=== PATIENT | female | born 1980 | race American Indian/Alaskan Native ===

== ENCOUNTER 2021-09-16 16:01 | Emergency (ER) | payer MEDICAID, OTHER ==
[2021-09-16] MEDS ORDERED: KETOROLAC 30 MG/1 ML INJ IM ONE (23:01)
[2021-09-16] MEDS ORDERED: ONDANSETRON 4 MG ODT TAB PO ONE (23:01)
[2021-09-16] MEDS ORDERED: CLINDAMYCIN 300 MG CAP PO ONE (23:01)
[2021-09-16] MEDS ORDERED: oxyCODONE /ACETAMINOPHEN 5-325MG TAB PO ONE (23:01)
--- NOTE | 2021-09-17 00:19 | Emergency Department Report ---
ED General Adult HPI - General Chief complaint: Skin/Abscess/Foreign Body Stated complaint: SWOLLEN JAW Source: patient Mode of arrival: Ambulatory Limitations: No Limitations - History of Present Illness Initial comments: Patient is a 41-year-old -Gabonese female with a no past medical history presents to the ED with complaint of acute onset persistent painful left maxi llary gingiva and swelling as well as as left facial swelling and premolar and molar tooth ache for the last 2 weeks. Patient states that she has seen been taking oral antibiotic amoxicillin that was prescribed by her dentist with no relief. Patient states that she has also been taking ibuprofen as needed for pain with no relief. Patient states that in the last 24 hours, the swelling on the left cheek has increased significantly with worsening pain. Patient denies fall, traumatic injury, fever, chills, nausea, vomiting, chest pain, shortness of breath, dysphagia or dysphonia, headache, neck pain, abdominal pain or change in vision. MD Complaint: left axillary swelling and pain; left maxillary premolar and molar toothach -: Gradual, week(s) (2) Location: mouth Radiation: non-radiation Severity scale (0 -10): 8 Quality: aching, sharp Consistency: constant Improves with: none Worsens with: none Associated Symptoms: denies other symptoms. denies: confusion, chest pain, cough, diaphoresis, fever/chills, headaches, loss of appetite, malaise, nausea/vomiting, rash, shortness of breath, syncope, weakness, other Treatments Prior to Arrival: none - Related Data Previous Rx's Medication Instructions Recorded Last Taken Type Clindamycin [Clindamycin CAP] 300 mg PO Q6H #40 cap 09/17/21 Unknown Rx Ketorolac [Toradol] 10 mg PO Q8H PRN #20 tab 09/17/21 Unknown Rx traMADoL [Ultram] 50 mg PO Q6HR PRN #12 tablet 09/17/21 Unknown Rx Allergies Allergy/AdvReac Type Severity Reaction Status Date / Time acetaminophen Allergy Unknown Verified 03/21/14 04:23 [From Darvocet-N] metoclopramide HCl Allergy Unknown Verified 03/21/14 04:24 [From Reglan] propoxyphene napsylate Allergy Unknown Verified 03/21/14 04:23 [From Darvocet-N] ED Review of Systems ROS: Stated complaint: SWOLLEN JAW Other details as noted in HPI Constitutional: denies: chills, fever Eyes: denies: eye pain, eye discharge, vision change ENT: dental pain (left maxillary premolar and moalr toothache; swollen painful left maxillary gingiva). denies: ear pain, throat pain Respiratory: denies: cough, shortness of breath, wheezing Cardiovascular: denies: chest pain, palpitations Endocrine: no symptoms reported Gastrointestinal: denies: abdominal pain, nausea, vomiting, diarrhea Genitourinary: denies: urgency, dysuria, discharge Musculoskeletal: denies: back pain, joint swelling, arthralgia, myalgia Skin: denies: rash, lesions Neurological: denies: headache, weakness, paresthesias Psychiatric: denies: anxiety, depression Hematological/Lymphatic: denies: easy bleeding, easy bruising ED Past Medical Hx - Past Medical History Hx Hypertension: No Hx Diabetes: No Hx Deep Vein Thrombosis: No Hx Renal Disease: No Hx Sickle Cell Disease: No Hx Seizures: No Hx Asthma: No Hx HIV: No - Surgical History Past Surgical History?: No - Social History Smoking Status: Never Smoker - Medications Home Medications: Home Medications Medication Instructions Recorded Confirmed Last Taken Type Clindamycin [Clindamycin CAP] 300 mg PO Q6H #40 cap 09/17/21 Unknown Rx Ketorolac [Toradol] 10 mg PO Q8H PRN #20 tab 09/17/21 Unknown Rx traMADoL [Ultram] 50 mg PO Q6HR PRN #12 tablet 09/17/21 Unknown Rx ED Physical Exam - General Limitations: No Limitations General appearance: alert, in no apparent distress - Head Head exam: Present: atraumatic, normocephalic, normal inspection - Eye Eye exam: Present: normal appearance, PERRL, EOMI Pupils: Present: normal accommodation - ENT ENT exam: Present: mucous membranes moist, TM's normal bilaterally, normal external ear exam, other (swollen tender left maxillary gingiva; tender left maxillary premolar and molar teeth) - Neck Neck exam: Present: normal inspection, full ROM. Absent: tenderness - Respiratory Respiratory exam: Present: normal lung sounds bilaterally. Absent: respiratory distress, wheezes, rales, rhonchi, chest wall tenderness, accessory muscle use, decreased breath sounds, prolonged expiratory - Cardiovascular Cardiovascular Exam: Present: regular rate, normal rhythm, normal heart sounds. Absent: systolic murmur, diastolic murmur, rubs, gallop - GI/Abdominal GI/Abdominal exam: Present: soft, normal bowel sounds. Absent: tenderness, guarding, rebound, rigid, hyperactive bowel sounds, hypoactive bowel sounds, organomegaly, mass - Extremities Exam Extremities exam: Present: normal inspection, full ROM, normal capillary refill. Absent: tenderness, pedal edema, joint swelling, calf tenderness - Back Exam Back exam: Present: normal inspection, full ROM. Absent: tenderness, CVA tenderness (R), CVA tenderness (L), muscle spasm, paraspinal tenderness, vert ebral tenderness - Neurological Exam Neurological exam: Present: alert, oriented X3, CN II-XII intact, normal gait, reflexes normal - Psychiatric Psychiatric exam: Present: normal affect, normal mood - Skin Skin exam: Present: warm, dry, intact, normal color. Absent: rash ED Course Vital Signs 09/16/21 16:06 Temperature 98.5 F Pulse Rate 85 Respiratory 18 Rate Blood Pressure 150/97 [Left] O2 Sat by Pulse 99 Oximetry ED Medical Decision Making - Medical Decision Making This is a 41-year-old -Gabonese female with a no past medical history presents to the ED with complaint of acute onset persistent painful left maxillary gingiva and swelling as well as as left facial swelling and premolar and molar tooth ache for the last 2 weeks. Patient states that she has seen been taking oral antibiotic amoxicillin that was prescribed by her dentist with no relief. Patient states that she has also been taking ibuprofen as needed for pain with no relief. Patient states that in the last 24 hours, the swelling on the left cheek has increased significantly with worsening pain. In the ED, patient is alert and oriented x3 and is not in any distress. Patient was treated for pain in the ED and was given initial oral antibiotics. Patient was discharged home on medications for pain and antibiotics and advised to follow-up with her primary care physician or dentist in 7 to 10 days for reevaluation or return to the ED immediately if symptoms get worse. - Differential Diagnosis Dental abscess; dental caries; gingivitis Critical care attestation.: If time is entered above; I have spent that time in minutes in the direct care of this critically ill patient, excluding procedure time. ED Disposition Clinical Impression: Acute gingivitis, Dental abscess, Dental caries Disposition: HOME / SELF CARE / HOMELESS Is pt being admited?: No Does the pt Need Aspirin: No Condition: Stable Instructions: Dental Extraction, Care After, [id number], Dental Abscess, [id number], Trench Mouth Additional Instructions: Take medication with food, drink plenty of fluids and follow up with our dentist in 7-10 days for reevaluation. Return to the ED immediately if symptoms get worse. Prescriptions: Clindamycin [Clindamycin CAP] 300 mg PO Q6H #40 cap Ketorolac [Toradol] 10 mg PO Q8H PRN #20 tab PRN Reason: Pain traMADoL [Ultram] 50 mg PO Q6HR PRN #12 tablet PRN Reason: Pain Referrals: IAN CERNA MD [Primary Care Provider] - 7-10 days [facility] [Provider Group] - 7-10 days [facility] [Outside] - 7-10 days Time of Disposition: 00:20 Print Language: ANGUILLAN
[2021-09-17 00:51] VITALS: BP 137/83
== END 2021-09-17 00:50 | disposition home or self-care (01) ==
LOC: ED 16:01
DX: K05.00 Acute gingivitis, plaque induced (principal); K04.7 Periapical abscess without sinus; K02.9 Dental caries, unspecified; Z88.8 Allergy status to other drugs, medicaments and biological substances
CPT/HCPCS: 96372; 99282; J1885; J3490; Q0162